=== PATIENT | female | born 1990 | race Caucasian/White ===

== ENCOUNTER 2020-01-29 17:53 | Emergency (ER) | payer OTHER ==
[~2020-01-29] VITALS: Ht 160 cm; Wt 89.8 kg
[2020-01-29 18:12] VITALS: BP 137/84; Ht 160 cm; Wt 89.8 kg
== END 2020-01-29 18:54 | disposition home or self-care (01) ==
LOC: ED 17:53
DX: J30.9 Allergic rhinitis, unspecified (principal); J04.0 Acute laryngitis

== ENCOUNTER 2020-11-02 18:40 | Emergency (ER) | payer OTHER, SELFPAY ==
[~2020-11-02] VITALS: Ht 160 cm; Wt 83.0 kg
[2020-11-02 18:41] VITALS: Ht 160 cm; Wt 83.0 kg
[2020-11-02 19:43] VITALS: BP 137/89
== END 2020-11-02 19:43 | disposition home or self-care (01) ==
LOC: ED 18:40
DX: U07.1 COVID-19 (principal)
CPT/HCPCS: U0003